=== PATIENT | male | born 1975 | race Caucasian/White ===

== ENCOUNTER 2024-09-07 08:37 | Emergency (ER) | payer BC, SELFPAY ==
--- NOTE | ~2024-09-07 | XR_ITS ---
EXAMINATION: XR CHEST 1 VIEW HISTORY: cough COMPARISON: There are no prior studies for comparison. FINDINGS: A single AP portable view of the chest performed at 9:26 AM is submitted. The lungs are expanded and clear. There is no pleural effusion, pneumothorax, or pulmonary vascular congestion. The heart is normal in size. The bones are intact. XR/XR chest 1V IMPRESSION: Clear lungs. Electronically signed by: Reza Tolentino MD 09/07/2024 09:35 AM MA[facility]IO
[2024-09-07 08:47] VITALS: BP 139/83; PULSE 104; RESP 20; TEMP 37.4; O2SAT 98; BMI 30.7
[2024-09-07 09:03] LABS: MANUAL DIFF FLAG NO
[2024-09-07 09:04] LABS: Basophils Percent Auto 0.2 % (0-2); Eosinophils Absolute Auto 0.3 X10*3/uL (0.0-0.4); Eosinophils Percent Auto 3.1 % (0-4); Hematocrit 38.4 % (42.0-52.0); Hemoglobin 13.5 g/dl (14.0-18.0); Imm Gran Abs Auto 0.03 X10*3/uL (0.00-0.03); Imm Gran Pct Auto 0.3 % (0.0-0.4); Lymphocytes Absolute Auto 0.6 X10*3/uL (1.2-4.9); Lymphocytes Percent Auto 6.4 % (20-40); Mean Corpuscular HGB Conc 35.2 g/dl (31.0-36.0); Mean Corpuscular Hemoglobin 28.7 pg (27.0-33.0); Mean Corpuscular Volume 81.5 fL (80.0-98.0); Mean Platelet Volume 10.8 fL (9.4-12.4); Monocytes Absolute Auto 0.5 X10*3/uL (0.1-1.2); Monocytes Percent Auto 5.3 % (2-11); Neutrophils Absolute Auto 8.5 x10*3/uL (2.0-8.3); Neutrophils Percent Auto 84.7 % (45-73); Platelet Count 157 X10*3/uL (160-400); Red Blood Count 4.71 X10*6/uL (4.60-5.80); Red Cell Distribution Width 12.5 % (11.0-16.0); White Blood Count 10.1 X10*3/uL (4.8-10.8)
[2024-09-07 09:13] LABS: Appearance Urine Clear; Color Urine Yellow; Glucose Urine UA Negative (Negative); Leukocyte Esterase Urine Negative (Negative); Nitrite Urine Negative (Negative); PH 8.5 (5.0-9.0); Specific Gravity - Urine 1.015 (1.005-1.025); Urine Blood Negative (Negative); Urine Ketones Negative (Negative); Urine Protein Negative (Neg-Trace)
[2024-09-07 09:24] LABS: Alanine Aminotransferase 29 U/L (0-40); Albumin Level 4.3 g/dL (3.5-5.0); Alkaline Phosphatase 62 U/L (39-117); Anion Gap 13 (12-20); Aspartate Amino Transferase 29 U/L (5-37); Bilirubin Direct 0.1 mg/dL (0.0-0.5); Bilirubin Total 0.5 mg/dL (0.0-1.0); Blood Urea Nitrogen 13 mg/dL (9-16); Calcium 8.5 mg/dL (8.4-10.2); Carbon Dioxide 22 mmol/L (22-29); Chloride 107 mmol/L (96-108); Creatinine Clr Calc Pharmacy 99.1; Estimated Glomerular Filt Rate > 60; Glucose Random 126 mg/dL (60-115); Lipase 65 U/L (8-78); Potassium 3.7 mmol/L (3.3-5.1); Sodium 138 mmol/L (135-145); Total Protein 7.6 g/dL (6.5-8.0)
[2024-09-07 09:50] LABS: Influenza A PCR POSITIVE (Negative); Influenza B PCR NEGATIVE (Negative); Resp Syncy Virus RNA Qual PCR NEGATIVE (Negative); SARS COV2 PCR INHOUSE NEGATIVE (Negative)
--- NOTE | 2024-09-07 15:56 | ED_ITS ---
HPI - URI/Sore Throat General Chief Complaint: Upper Respiratory Symptoms Stated Complaint: Flu Time Seen by Provider: 09/07/24 15:54 Source: patient Mode of arrival: ambulatory Limitations: no limitations History of Present Illness ED Provider: Casey Bean DO HPI Narrative: 49-year-old male with no significant past medical history presents to the emergency department due to 5 days of diffuse myalgias, cough with yellow sputum, subjective fevers and an episode of vomiting with fatigue today. No sick contacts at home. The patient does not have his vaccination against the flu this year. He has had no persistent vomiting or diarrhea or chest discomfort. He does have acute on chronic discomfort of the bilateral ears without drainage. Had tubes as a child multiple times with scarring of the ears. Has been able to tolerate p.o. intake. Related Data Allergies Allergy/AdvReac Type Severity Reaction Status Date / Time No Known Allergies Allergy Verified 09/07/24 08:50 Review of Systems 2 Review of Systems: Yes all other systems are reviewed and are negative Physical Exam 2 Vital Signs: Vital Signs: Last Vital Signs Temp 99.4 F 09/07/24 08:47 Pulse 104 H 09/07/24 08:47 Resp 20 09/07/24 08:47 BP 139/83 09/07/24 08:47 Pulse Ox 98 09/07/24 08:47 O2 Del Method Room Air 09/07/24 08:47 BMI result Body Mass Index 30.7 Constitutional: ?Alert, oriented, speaking in full sentences HEENT: ?Normocephalic, atraumatic. Some scarring of the bilateral TMs without erythema, bulging or discharge Eyes: ?PERRL, EOMI Neck: ?Supple, nontender Chest: ?No chest wall tenderness Respiratory: ?Lungs clear to auscultation, no increased work of breathing, occasional cough Cardio: ?Regular rate and rhythm, no murmur, 2+ radial and DP pulses symmetrically GI: ?Soft, nondistended, nontender Back: ?Normal range of motion, nontender Skin: ?No rash, no lesions Neuro: ?Alert and oriented to person, place and time, moves all 4 extremities, no focal deficits Extremities: ?No swelling or tenderness, full range of motion Psych: ?Calm, alert and cooperative, appropriate behavior Medical Decision Making Medical Decision Making [facility] Narrative: Patient presenting with 5 days of symptoms and positive for influenza A. The patient has a mild tachycardia here. Otherwise vitals stable and appears well. Chest x-ray per my independent interpretation shows no acute cardiopulmonary abnormality. Patient is not a candidate for Tamiflu. We discussed hydration at home and annual influenza vaccination. Patient and at bedside comfortable with plan. Work note provided. Lab Data MDM Lab Attestation statement: I reviewed the patient's lab results. Unremarkable labs 09/07/24 08:59 09/07/24 08:59 Labs: Lab Results 09/07/24 09/07/24 Range/Units 08:59 09:03 WBC 10.1 (4.8-10.8) X10*3/uL RBC 4.71 (4.60-5.80) X10*6/uL Hgb 13.5 L (14.0-18.0) g/dl Hct 38.4 L (42.0-52.0) % MCV 81.5 (80.0-98.0) fL MCH 28.7 (27.0-33.0) pg MCHC 35.2 (31.0-36.0) g/dl RDW 12.5 (11.0-16.0) % Plt Count 157 L (160-400) X10*3/uL MPV 10.8 (9.4-12.4) fL Immature Gran % (Auto) 0.3 (0.0-0.4) % Neut % (Auto) 84.7 H (45-73) % Lymph % (Auto) 6.4 L (20-40) % [place] % (Auto) 5.3 (2-11) % Eos % (Auto) 3.1 (0-4) % Baso % (Auto) 0.2 (0-2) % Lymph # (Auto) 0.6 L (1.2-4.9) X10*3/uL [place] # (Auto) 0.5 (0.1-1.2) X10*3/uL Eos # (Auto) 0.3 (0.0-0.4) X10*3/uL Baso # (Auto) 0.0 (0.0-0.2) X10*3/uL Abs Immat Gran (auto) 0.03 (0.00-0.03) X10*3/uL Absolute Neuts (auto) 8.5 H (2.0-8.3) x10*3/uL Absolute Nucleated RBC 0.000 (0.0-0.012) X10*3/uL Nucleated RBC % (auto) 0.0 (0.0-0.2) /100WBC Sodium 138 (135-145) mmol/L Potassium 3.7 (3.3-5.1) mmol/L Chloride 107 (96-108) mmol/L Carbon Dioxide 22 (22-29) mmol/L Anion Gap 13 (12-20) BUN 13 (9-16) mg/dL Creatinine 0.98 (0.5-1.4) mg/dL Estim Creat Clear Calc 99.1 Estimated GFR > 60 Random Glucose 126 H (60-115) mg/dL Calcium 8.5 (8.4-10.2) mg/dL Total Bilirubin 0.5 (0.0-1.0) mg/dL Direct Bilirubin 0.1 (0.0-0.5) mg/dL AST 29 (5-37) U/L ALT 29 (0-40) U/L Alkaline Phosphatase 62 (39-117) U/L Total Protein 7.6 (6.5-8.0) g/dL Albumin 4.3 (3.5-5.0) g/dL Lipase 65 (8-78) U/L Urine Color Yellow Urine Appearance Clear Urine pH 8.5 (5.0-9.0) Ur Specific [place] 1.015 (1.005-1.025) Urine Protein Negative (Neg-Trace) mg/dL Urine Glucose (UA) Negative (Negative) mg/dL Urine Ketones Negative (Negative) mg/dL Urine Blood Negative (Negative) Urine Nitrite Negative (Negative) Ur Leukocyte Esterase Negative (Negative) Influenza Type A (PCR) POSITIVE A (Negative) Influenza Type B (PCR) NEGATIVE (Negative) RSV RNA Qual (PCR) NEGATIVE (Negative) SARS-CoV-2 RNA (RT-PCR) NEGATIVE (Negative) Discharge Plan Discharge Clinical Impression: Influenza Patient Disposition: Home, Self-Care Instructions: Influenza (ED) Additional Instructions: Continue ibuprofen and acetaminophen for discomfort. Continue drinking plenty of fluids stay hydrated. The flu should improve within a week or so. If you have any worsening conditions such as increased fatigue, difficulty breathing, persistent fevers or any other acute concerns, please return to the emergency department. I recommend yearly flu shots to help prevent severe disease in the future. Stand Alone Forms: Work/School Release Print Language: Australian
--- OUTSIDE RECORDS SUMMARY | 2024-09-07 16:39 | XMS_ITS | Encounter Summary ---
Author Organization [facility] Address [address] [place] [address] Care Team Providers Care Tape Making Machine Operator Name Role Phone Katlin Esposito Primary Care Provider [phone] Encounter Details Date Type Department Care Team (Latest Contact Info) Description 08/26/2024 Travel Social History Tobacco Use Types Packs/Day Years Used Date Smoking Tobacco: Never Smokeless Tobacco: Never Alcohol Use Standard Drinks/Week Comments Yes 0 (1 standard drink = 0.6 oz pur e alcohol) ocasional Sex and Gender Information Value Date Recorded Sex Assigned at Male 05/26/2024 9:02 PM EDT Gender Identity Male 05/26/2024 9:02 PM EDT Sexual Orientation Heterosexual (straight) 05/26 9:02 PM EDT documented as of this encounter Plan of Treatment Upcoming Encounters Date Type Department Care Team (Late st Contact Info) Description 11/18/2024 9:45 AM EDT Office Visit [facility] [id number] [address] [place] [phone] Kulwant Charles MD [address] [place], [place] [phone] documented as of this encounter Visit Diagnoses Not on filedocumented in this encounter Care Teams Tape Making Machine Operator Relationship Specialty Start Date End Date Katlin Esposito PA [address] [place] [address] [id number] PCP - General 05/20/24 documented as of this encounter
--- OUTSIDE RECORDS SUMMARY | 2024-09-07 16:39 | XMS_ITS | Encounter Summary ---
Author Organization [facility] Address [address] [place] [id number] Care Team Providers Care Auto Glass Technician Name Role Phone Katlin Esposito Primary Care Provider [phone] Encounter Details Date Type Department Care Team (Late st Contact Info) Description 07/19/2024 12:08 PM EST Hospital Encounter [facility] [address] [phone] Social History Tobacco Use Types Packs/Day Years [...] AM EDT Office Visit [facility] [id number] [address] [place] [address] [place] [phone] Kulwant Charles MD [address] [id number] documented as of this encounter Procedures Procedure Name Priority Date/Time Associated Diagnosis Comments VLADIMIR ARCHIVE FOR REFERENCE ONLY MR Routine 07/19/2024 12:10 PM EST documented in this encounter Results * VLADIMIR Archive for reference only MR (07/19/2024 12:10 PM EST) Narrative [facility] - 07/19/2024 12:08 PM EST This order has been auto-finalized and does not contain a result. File Room Provider IMG DIGITIZE FILMS [facility] documented in this encounter Visit Diagnoses Not on filedocumented in this encounter Care Teams Auto Glass Technician Relationship Specialty Start Date End Date Katlin Esposito PA [address] [place] [address] PCP - General 05/20/24 documented as of this encounter
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
--- OUTSIDE RECORDS SUMMARY | 2024-09-07 16:39 | XMS_ITS | Encounter Summary ---
Author Organization [facility] Address [address] [place] [address] Care Team Providers Care Senior Core Java Developer Name Role Phone Katlin Esposito Primary Care Provider [phone] Reason for Visit * Reason Comments Referral Encounter Details Date Type Department Care Team ([facility] st Contact Info) Description 08/16/2024 Telephone [facility] Neurosurgery [address] [phone] Julia Tobin MA [address] [place] [phone] Referral Social History Tobacco Use Types Packs/Day Years [...] PM EDT documented as of this encounter Miscellaneous Notes * Telephone Encounter - Julia Tobin MA - 08/16/2024 10:48 AM EST Patient called and noted he has been playing phone tag with Dr. Pace's office provided him with there office number advised him to call them back and referral was refaxed. documented in this encounter Plan of Treatment Upcoming Encounters Date Type Department Care Team (Late st Contact Info) Description 11/18/2024 9:45 AM EDT Office Visit MG PAIN MGMT [place] [address] [place] [phone] Kulwant Charles MD [address] [place], [place] [phone] documented as of this encounter Visit Diagnoses Not on filedocumented in this encounter Care Teams Senior Core Java Developer Relationship Specialty Start Date End Date Katlin Esposito PA [address] [place] [id number] PCP - General 05/20/24 documented as of this encounter
--- OUTSIDE RECORDS SUMMARY | 2024-09-07 16:39 | XMS_ITS | Clinical Summary ---
Author Organization [facility] Address [address] [place] [address] Care Team Providers Care Mail Messenger Contractor Name Role Phone Katlin Esposito Primary Care Provider [phone] Allergies No known active allergies Medications Medication Sig Dispensed Refills Start Date End Date Status aspirin-acetaminoph en-caffeine (EXCEDRIN MIGRAINE) 250-250-65 mg per tablet Take 1 tablet by mouth 4 times daily (every 6 hours) as needed for headaches. Active ibuprofen (MOTRIN) 200 MG tablet Take 1 tablet (200 mg total) by mouth 4 times daily (every 6 hours) as needed for mild pain (Pt take 3 pill 2-3 times a day). Active methocarbamol (ROBAXIN) 750 MG tabletIndications:C ervical radiculopathy TAKE 1 TABLET BY MOUTH 4 TIMES A DAY. 120 tablet 07/19/2024 Active DULoxetine (CYMBALTA) 60 MG capsuleIndications: Spondylosis of cervical region without myelopathy or radiculopathy Take 1 capsule (60 mg total) by mouth daily. 30 capsule 2 08/11/2024 5 Active DULoxetine (CYMBALTA) 60 MG capsuleIndications: Spondylosis of cervical region without myelopathy or radiculopathy Take 1 capsule (60 mg total) by mouth daily. Do not start before July 15, 2024. 30 capsule 2 07/15/2024 5 Discontinue d(Reorder) DULoxetine (CYMBALTA) 30 MG capsuleIndications: Spondylosis of cervical region without myelopathy or radiculopathy TAKE 1 CAPSULE BY MOUTH EVERY DAY 14 capsule 07/18/2024 Discontinue d(Therapy completed) Encounters Date Type Department Care Team Description 08/26/2024 10:30 AM EST Procedure visit [facility] [address] [phone] Kulwant Charles MD Bilateral occipital neuralgia (Primary Dx); Cervicalgia; Spondylosis of cervical region without myelopathy or radiculopathy; Myofascial pain 08/26/2024 Travel 08/16/2024 Telephone [facility] [address] [phone] Julia Tobin MA Referral 08/10/2024 Refill [facility] [address] [phone] Kulwant Charles MD Spondylosis of cervical region without myelopathy or radiculopathy 07/19/2024 12:08 PM EST Hospital Encounter [facility] [address] [place] [phone] 07/18/2024 Refill [facility] [address] [phone] Kulwant Charles MD Spondylosis of cervical region without myelopathy or radiculopathy 07/18/2024 Refill [facility] [address] [phone] Muary Thornton PA-C Cervical radiculopathy 07/14/2024 9:00 AM EST Procedure visit [facility] [address] [phone] Kulwant Charles MD Myofascial pain (Primary Dx); Bilateral occipital neuralgia; Cervicalgia; Spondylosis of cervical region without myelopathy or radiculopathy 07/14/2024 Travel 07/01/2024 12:00 PM EST Office Visit [facility] [address] [phone] Kulwant Charles MD Myofascial pain (Primary Dx); Bilateral occipital neuralgia; Spondylosis of cervical region without myelopathy or radiculopathy; Cervicalgia 07/01/2024 Orders Only [facility] [address] [phone] Kulwant Charles MD Spondylosis of cervical region without myelopathy or radiculopathy (Primary Dx) 07/01/2024 Refill [facility] [address] [phone] Kulwant Charles MD Myofascial pain; Bilateral occipital neuralgia; Spondylosis of cervical region without myelopathy or radiculopathy 07/01/2024 Travel 06/17/2024 2:45 PM EST - 06/17/2024 11:59 PM EST Hospital Encounter [facility] [address] [phone] Maury Thornton PA-C Cervical radiculopathy; Cervical stenosis of spine; Degeneration of cervical intervertebral disc; Foraminal stenosis of cervical region Discharge Disposition: Home or Self Care 06/17/2024 2:00 PM EST Consult [facility] [address] [phone] Maury Thornton PA-C Cervical radiculopathy (Primary Dx); Cervical stenosis of spine; Degeneration of cervical intervertebral disc; Foraminal stenosis of cervical region 06/17/2024 Travel from Last 3 Months Social History Tobacco Use Types Packs/Day Years Used Date Smoking Tobacco: Never Smokeless Tobacco: Never Tobacco Cessation:Counseling Given: Not Answered Alcohol Use Standard Drinks/Week Comments Yes 0 (1 standard drink = 0.6 oz pur e alcohol) ocasional Sex and Gender Information Value Date Recorded Sex Assigned at Male 05/26/2024 9:02 PM EDT Gender Identity Male 05/26/2024 9:02 PM EDT Sexual Orientation Heterosexual (straight) 05/26 9:02 PM EDT Last Filed Vital Signs Vital Sign Reading Time Taken Comments Blood Pressure 135/84 08/26/2024 10:19 AM EST Pulse 69 08/26/2024 10:19 AM EST Temperature 36.6 ??C (97.8 ??F) 07/31/2010 2:39 PM ES T Respiratory Rate - - Oxygen Saturation 98% 08/26/2024 10:19 AM EST Inhaled Oxygen Concentration - - Weight 90 kg (198 lb 6.4 oz) 08/26/2024 10:19 AM EST Height 170.2 cm (5' 7.01 ) 08/26/2024 10:[address] Body Mass Index 31.07 08/26/2024 10:19 AM EST Plan of Treatment Upcoming Encounters Date Type Department Care Team (Late st Contact Info) Description 11/18/2024 9:45 AM EDT Office Visit [facility] [id number] [place] [address] [place] [phone] Kulwant Charles MD [address] [address] Health Maintenance Due Date Last Done Comments Hepatitis C Virus Screening 1977 HIV Screening 1990 DTaP/Tdap/Td Vaccines (1 - Tdap) 1996 Hepatitis B Vaccines (1 of 3 - 19+ 3-dose series) 1996 Colonoscopy 2022 Influenza Vaccine 02/25/2024 06/30/2006 COVID-19 Vaccine (1 - 2023-2 5 season) 2024 Pneumococcal Vaccine: Pediat babs (0-5 Years) and At-Risk Patients (6 to 49 Years) Aged Out No longer eligible b ased on patient's age to complete this topic Procedures Procedure Name Priority Date/Time Associated Diagnosis Comments OCCIPITAL NERVE BLOCK (GREATER) Routine 08/26/2024 10:57 AM EST Bilateral occipital neuralgia VLADIMIR ARCHIVE FOR REFERENCE ONLY MR Routine 07/19/2024 12:10 PM EST TRIGGER POINT INJECTION , >3 Routine 07/14/2024 10:29 AM EST Myofascial pain XR CERVICAL SPINE W/ FLEX+EXT 4 VIEWS Routine 06/17/2024 2:59 PM EST Cervical radiculopathy Cervical stenosis of spine Degeneration of cervical intervertebral disc Foraminal stenosis of cervical region from Last 3 Months Results * OCCIPITAL NERVE BLOCK (GREATER) (08/26/2024 10:57 AM EST) Narrative Kulwant Charles MD - 08/26/2024 10:57 AM EST Kulwant Charles MD ? 08/26/2024 10:58 AM Greater Occipital Nerve Blocks and Lesser Occipital Nerve Blocks: BILATERAL -under dynamic ultrasound guidance CPT codes 68275 and 27011 and 93963 After informed consent and an updated H&P [...] Kulwant Charles MD AMB ORDERABLE PER FORMABLE * VLADIMIR Archive for reference only MR (07/19/2024 12:10 PM EST) Narrative [facility] - 07/19/2024 12:08 PM EST This order has been auto-finalized and does not contain a result. File Room Provider IMG DIGITIZE FILMS [facility] * TRIGGER POINT INJECTION , >3 (07/14/2024 10:29 AM EST) Narrative Kulwant Charles MD - 07/14/2024 10:29 AM EST Kulwant Charles MD ? 07/14/2024 10:29 AM Trigger Point Injections with dynamic ultrasound guidance: The procedure was discussed with the patient including complications of nerve damage, spinal headache, bleeding, infection, and failure of pain relief. Trigger points were identified by palpation and marked. CHG prep performed at each entry site. A 25-gauge 1.5 inch needle was advanced to the point of maximal tenderness in the bilateral cervical paraspinal, trapezius, and rhomboid muscles, as well as splenius capitis bilaterally. 10 cc mixture of 10mg dexamethasone (PF) and 0.2% ropivacaine was split between 10 injections sites in the aforementioned muscles. Patient tolerated the procedure well and without complications. The procedure was performed with dynamic ultrasound guidance. ?? Images were saved. The patient tolerated the procedure well and was discharged without incident. Kulwant Charles MD AMB ORDERABLE PER FORMABLE * XR Cervical spine w/ flex+ext 4 views (06/17/2024 2:59 PM EST) Anatomical Region Laterality Modality C-spine Computed Radiogr aphy 06/17/2024 4:12 PM EST Impressions 06/17/2024 4:14 PM EST Minimal retrolisthesis at C3-C4 which reduces with flexion and slightly increases with extension. Osteoarthrosis. Narrative 06/17/2024 4:14 PM EST COMPARISON: None TECHNIQUE: Frontal, neutral lateral, flexion lateral, and extension lateral views of the cervical spine FINDINGS: ALIGNMENT: Minimal grade 1 retrolisthesis of C3 on C4 reduces with flexion and slightly increases with extension. BONES: Vertebral body heights maintained. DISCS: Mild narrowing at C3-C4. Moderate narrowing at the C4-C6 levels. SOFT TISSUES: Normal. Procedure Note Andrea Harding MD - 06/17/2024 COMPARISON: None TECHNIQUE: Frontal, neutral lateral, flexion lateral, and extensionlateral views of the cervical spine FINDINGS: ALIGNMENT: Minimal grade 1 retrolisthesis of C3 on C4 reduces with flexionand slightly increases with extension. BONES: Vertebral body heights maintained. DISCS: Mild narrowing at C3-C4. Moderate narrowing at the C4-C6 levels. SOFT TISSUES: Normal. IMPRESSION: Minimal retrolisthesis at C3-C4 which reduces with flexion and slightlyincreases with extension. Osteoarthrosis. Maury Thornton PA-C IMG DIAGNOSTIC IMAGI NG ORDERABLES from Last 3 Months Care Teams Mail Messenger Contractor Relationship Specialty Start Date End Date Katlin Esposito PA [address] [place] [id number] PCP - General 05/20/24
--- OUTSIDE RECORDS SUMMARY | 2024-09-07 16:39 | XMS_ITS ---
Author Name [facility] Organization Unknown History of Medication Use Medication Directions Dispensed Refills Start Date End Date Stat us DULoxetine (CYMBALTA) 60 MG capsule Take 1 capsule (60 mg total) by mouth daily. 07/15/2024 08/10/2024 active DULoxetine (CYMBALTA) 30 MG capsule TAKE 1 CAPSULE BY MOUTH EVERY DAY 07/18/2024 08/11/2024 active aspirin-acetaminoph en-caffeine (EXCEDRIN MIGRAINE) 250-250-65 mg per tablet Take 1 tablet by mouth 4 times daily (every 6 hours) as needed for headaches. active Problems Problem Status Onset Date Problem Type Date of Resolution Source Bilateral occipital neuralgia active EncounterDiagnosisAct [facility] Cervicalgia active EncounterDiagnosisAct [facility] Spondylosis of cervical region without myelopathy or radiculopathy active EncounterDiagnosisAct [facility] Myofascial pain active EncounterDiagnosisAct [facility]
--- OUTSIDE RECORDS SUMMARY | 2024-09-07 16:39 | XMS_ITS | Encounter Summary ---
Author Organization [facility] Address [address] [place] [address] Care Team Providers Care Button Grader Name Role Phone Katlin Esposito Primary Care Provider [phone] Reason for Visit * Reason Onset Date Comments Medication Refill 08/10/2024 Encounter Details Date Type Department Care Team (Late st Contact Info) Description 08/10/2024 Refill [id number] [place] [phone] Kulwant Charles MD [address] [place] [address] Spondylosis of cervical region without myelopathy or radiculopathy Social History Tobacco Use Types Packs/Day Years [...] Telephone Encounter - Julia Tobin MA - 08/11/2024 7:21 AM EST Hi , Patient is requesting a refill on Duloxetine can this be refilled or would he require an appt. Please advise. documented in this encounter Plan of Treatment Upcoming Encounters Date Type Department Care Team (Late st Contact Info) Description 11/18/2024 9:45 AM EDT Office Visit [facility] [address] [place] [phone] Kulwant Charles MD [address] [place], [place] [id number] documented as of this encounter Visit Diagnoses Diagnosis Spondylosis of cervical region without myelopathy or radiculopathy documented in this encounter Care Teams Button Grader Relationship Specialty Start Date End Date Katlin Esposito PA [address] [place] [id number] PCP - General 05/20/24 documented as of this encounter
[2024-09-07 17:20] VITALS: BP 139/83; PULSE 104; RESP 20; TEMP 37.4; O2SAT 98
== END 2024-09-07 17:21 | disposition home or self-care (01) ==
PROVIDERS: Emergency Provider Emergency Medicine; PCP Physician Assistant Medical
DX: J10.1 Influenza due to other identified influenza virus with other respiratory manifestations (principal); R05.9 Cough, unspecified; Z03.818 Encounter for observation for suspected exposure to other biological agents ruled out; Z79.899 Other long term (current) drug therapy
CPT/HCPCS: 0241U; 71045; 80048; 80076; 81003; 83690; 85025; 99282; 99283

== ENCOUNTER → 2024-09-07 08:52 | Outpatient (BNV) | payer OTHER, SELFPAY | PROVIDERS: PCP Physician Assistant Medical; Visit Provider Radiology Diagnostic Radiology | DX: R05.9 Cough, unspecified (principal) | CPT/HCPCS: 71045 ==